=== PATIENT | male | born 1970 | race Caucasian/White ===

== ENCOUNTER 2018-12-12 12:56 | Emergency (ER) | payer OTHER, SELFPAY ==
[2018-12-12 12:57] VITALS: BP 161/98; PULSE 83; RESP 16; TEMP 36.1; O2SAT 98; BMI 23.0
[2018-12-12 13:09] VITALS: BP 158/85; PULSE 90; RESP 14; O2SAT 98
--- NOTE | 2018-12-12 13:13 | RAD_ITS ---
STUDY: X-RAY - RIGHT HAND REASON FOR EXAM: Male, 48 years old. Injury to the fifth digit. TECHNIQUE: 3 view(s) of the hand. COMPARISON: None. FINDINGS: Normal radiocarpal articulation. Normal distal radioulnar joint. Normal visualized carpal bones. Normal carpal articulations Normal carpometacarpal articulation of the thumb. Normal second through fifth carpometacarpal joints. Normal metacarpi. Normal metacarpophalangeal joint of the thumb. Normal interphalangeal joint of the thumb. Normal proximal and distal phalanges of the thumb. Normal metacarpophalangeal joints of the second through fifth fingers. Normal proximal and distal interphalangeal joints of the second through fifth fingers. Normal phalanges of the second through fifth fingers. Soft tissue swelling and laceration overlying the base of the fifth digit. No radiopaque foreign body is seen. RAD/Hand Min 3 Views IMPRESSION: Soft tissue laceration and swelling overlying the base of the fifth digit. No radiopaque foreign body is seen. Electronically Signed: Donavon Wilson, at 13:29 EDT , Service support ,
--- NOTE | 2018-12-12 13:55 | ED.DCSUM_ITS ---
- ER Visit Summary Date of Service: 12/12/18 Chief Complaint: Hand injury History of Present Illness: The patient is a [address] [facility] emergency room with a right hand injury. Patient had his hand caught by it being placed in between a heavy shoot and a trash dumpster. Last tetanus 2013. He is left-handed. Physical Examination: Afebrile vital signs are stable 5 cm irregular laceration over the palmar aspect of the fourth and fifth metacarpal extending into the webspace with a small half centimeter laceration to the lateral aspect of the fifth digit. Neurovascularly intact no active bleeding Test Results: Hand films were negative for fracture Emergency Department Course and Treatment: Wound was locally anesthetized with 1% lidocaine. Wound was closed using a total of 11 simple interrupted 4-0 Ethilon sutures. Wound care discussed with patient. Follow-up with [facility] 10 to 14 days return if worsening or concerns Impression: 1. 5 cm Right hand laceration with repair This note was generated with [employer] dictation software. It may contain incorrect words, spelling, and punctuation that were not noted in review of the chart prior to signing ED Disposition - Plan for ED Patient: Disposition: Home or Assisted Living Instructions: LACERATION, Hand Referrals: [facility] [NON-[facility]] - 10-14 Days suture removal
--- NOTE | 2018-12-12 14:06 | ED.RN ---
[facility] called. She will be here for test after finishing test at [facility].
[2018-12-12 14:18] VITALS: BP 150/78; PULSE 80; RESP 14; O2SAT 98
== END 2018-12-12 14:20 | disposition home or self-care (01) ==
LOC: ED 14:17
PROVIDERS: Emergency Provider Emergency Medicine
DX: S61.411A Laceration without foreign body of right hand, initial encounter (principal); W23.0XXA Caught, crushed, jammed, or pinched between moving objects, initial encounter; Y93.9 Activity, unspecified; Y99.0 Civilian activity done for income or pay; Z72.0 Tobacco use
CPT/HCPCS: 12002; 73130; 99284